=== PATIENT | male | born 1945 | race Caucasian/White ===

== ENCOUNTER 2018-01-08 07:49 | Outpatient (CLI) | payer MEDICARE, OTHER ==
--- NOTE | 2018-01-08 09:16 | RAD ---
PA AND LATERAL CHEST XRAY: DATE: 01/08/18. HISTORY: Cough. COMPARISON: None available. FINDINGS: Cardiac silhouette and pulmonary vasculature are within normal limits. There is mild eventration of the anterior right hemidiaphragm. Lungs are clear. Mild degenerative changes are seen in the spine with calcification of anterior longitudinal ligament. IMPRESSION: No acute cardiopulmonary process. POS: [facility]
== END 2018-01-08 07:50 | disposition home or self-care (01) ==
LOC: RAD-FRANK 07:49
PROVIDERS: ATTEND Nurse Practitioner Family
DX: R05 Cough (principal)
CPT/HCPCS: 71046

== ENCOUNTER 2019-05-28 10:02 | Outpatient (CLI) | payer MEDICARE, OTHER ==
--- NOTE | 2019-05-28 11:45 | RAD ---
LEFT KNEE FOUR VIEWS: HISTORY: Left knee pain. FINDINGS: Degenerative changes are present. No fracture, dislocation or bony destruction is identified. POS: OFF
--- NOTE | 2019-05-28 11:46 | RAD ---
RIGHT KNEE FOUR VIEWS: HISTORY: Right knee pain. FINDINGS: Degenerative changes are present. No fracture, dislocation or bony destruction is identified. POS: OFF
== END 2019-05-28 10:03 | disposition home or self-care (01) ==
LOC: RAD-FRANK 10:02
PROVIDERS: ATTEND Nurse Practitioner Family
DX: M25.561 Pain in right knee (principal); M25.562 Pain in left knee; M17.0 Bilateral primary osteoarthritis of knee

== ENCOUNTER 2021-07-31 11:24 | Emergency (ER) | payer MEDICARE, OTHER ==
[2021-07-31] MEDS ORDERED: Boostrix 0.5 ML (Tdap) VIAL ONE (13:12)
[2021-07-31] MEDS ORDERED: Lidocaine 1% w/Epinephrine 1:100K 20 ML VIAL ONE (13:13)
== END 2021-07-31 14:16 | disposition home or self-care (01) ==
LOC: ERS 11:24
DX: S61.012A Laceration without foreign body of left thumb without damage to nail, initial encounter (principal); E78.00 Pure hypercholesterolemia, unspecified; I10 Essential (primary) hypertension; Z79.899 Other long term (current) drug therapy; W26.8XXA Contact with other sharp object(s), not elsewhere classified, initial encounter
CPT/HCPCS: 12002; 90471; 90715

== ENCOUNTER 2022-03-03 09:53 | Outpatient (CLI) | payer MEDICARE, OTHER ==
[2022-03-03 11:32] LABS: Hemoglobin 16.1 g/dL (13.5-17.5); Mean Corpuscular HGB CONC 33.1 g/dL (32.0-36.0); Mean Corpuscular Volume 90.9 fl (81.2-95.1); Mean Platelet Volume 10.4 fl (7.4-10.4); Platelet Count 216 10x3/uL (150-450); RBC Distribution Width 13.4 % (11.5-14.5); Red Blood Cell (RBC) Count 5.36 10x6/uL (4.32-5.72); White Blood Cell (WBC) Count 5.8 10x3/uL (3.5-10.5)
[2022-03-03 11:43] LABS: Prothrombin Time 10.5 sec (9.5-12.1)
[2022-03-03 11:45] LABS: Anion Gap 15 mmol/L (10-20); BUN (Urea Nitrogen) 20 mg/dL (8.4-25.7); Calc. Creatinine Clearance 0 mL/min (70-130); Calcium 9.4 mg/dL (7.8-10.44); Carbon Dioxide 30 mmol/L (23-31); Chloride 102 mmol/L (98-107); Estimated GFR 76; Glucose 93 mg/dL (83-110); Potassium 4.2 mmol/L (3.5-5.1); Sodium 143 mmol/L (136-145)
== END 2022-03-03 09:54 | disposition home or self-care (01) ==
LOC: LABBT 09:53
PROVIDERS: ATTEND Orthopaedic Surgery
DX: Z01.812 Encounter for preprocedural laboratory examination (principal); M17.0 Bilateral primary osteoarthritis of knee; Z20.822 Contact with and (suspected) exposure to COVID-19
CPT/HCPCS: 80048; 85027; 85610; 87081; 87811

== ENCOUNTER 2022-03-03 10:15 | Inpatient (IN) | payer MEDICARE, OTHER ==
[2022-03-04 14:22] VITALS: BMI 28.5
[2022-03-08] MEDS ORDERED: Vancomycin (BATCH) 1.5 GRAM/300 ML BAG ONE (07:58)
[2022-03-08] MEDS ORDERED: Tranexamic Acid 1,000 MG/10 ML VIAL ONE (07:58)
[2022-03-08] MEDS ORDERED: Sodium Chloride 0.9% 100 ML ONE ×2 (07:58→09:16)
[2022-03-08] MEDS ORDERED: Midazolam HCl 2 mg/2 ml Vial ONE (08:03)
[2022-03-08] MEDS ORDERED: Fentanyl 100 MCG/2 ML VIAL ONE ×3 (08:03→12:40)
[2022-03-08] MEDS ORDERED: Bupivacaine HCl 0.5%/Epinephrine 1:200,000/PF 30 ml Vial ONE (08:52)
[2022-03-08] MEDS ORDERED: Bupivacaine PF 0.5% 30 ML VIAL ONE (09:16)
[2022-03-08] MEDS ORDERED: CEFAZOLIN 2 GM VIAL ONE (09:16)
[2022-03-08] MEDS ORDERED: Fentanyl 100 MCG/2 ML VIAL IV PRN (09:53)
[2022-03-08] MEDS ORDERED: fentaNYL Citrate/PF 100 MCG/2 ML SYRINGE ONE (09:55)
[2022-03-08] MEDS ORDERED: Ondansetron PF 4 MG/2 ML Vial IVP PRN ×2 (10:00→12:24)
[2022-03-08] MEDS ORDERED: Promethazine HCl 25 MG/ML VIAL IM PRN ×3 (10:00→12:24)
[2022-03-08] MEDS ORDERED: Ropivacaine 0.2% 550 ML 550 ML NERVE BLCK SCH (10:00)
[2022-03-08] MEDS ORDERED: HYDROcodone/Acetaminophen 10/325 mg Tablet PO PRN ×2 (10:00)
[2022-03-08] MEDS ORDERED: Zolpidem Tartrate 5 MG TAB PO PRN ×2 (10:00→12:24)
[2022-03-08] MEDS ORDERED: traMADol HCl 50 MG TAB PO PRN ×2 (10:00)
[2022-03-08] MEDS ORDERED: Ondansetron PF 4 MG/2 ML Vial ONE (10:03)
[2022-03-08] MEDS ORDERED: Dexamethasone 20 MG/5 ML VIAL ONE (10:03)
[2022-03-08] MEDS ORDERED: PROPOFOL 200 MG/20 ML VIAL ONE (10:03)
[2022-03-08] MEDS ORDERED: Lidocaine 1% PF 5 ML VIAL ONE (10:03)
[2022-03-08] MEDS ORDERED: ePHEDrine 50 MG/ML VIAL ONE (10:03)
[2022-03-08] MEDS ORDERED: HYDROmorphone 2 MG/ML VIAL SLOW IVP PRN (11:31)
[2022-03-08] MEDS ORDERED: Ketorolac Tromethamine 30 MG/ML VIAL IVP PRN (11:31)
[2022-03-08] MEDS ORDERED: Ondansetron HCl/PF 4 MG/2 ML Vial IVP PRN (11:31)
[2022-03-08] MEDS ORDERED: Promethazine HCl 25 MG/ML VIAL IVPB PRN (11:31)
[2022-03-08] MEDS ORDERED: Ketorolac Tromethamine 30 MG/ML VIAL ONE (12:12)
[2022-03-08] MEDS: Ketorolac Tromethamine 30 MG/ML VIAL IVP SCH ×2 (12:12→17:42)
[2022-03-08] MEDS ORDERED: diphenhydrAMINE 25 MG CAP PO PRN (12:24)
[2022-03-08] MEDS ORDERED: Acetaminophen 325 MG TAB PO PRN (12:24)
[2022-03-08] MEDS: Sodium Chloride 0.9% 1,000 ML IV SCH ×2 (17:44→22:58)
[2022-03-08] MEDS ORDERED: Vancomycin HCl 1.5 GM in Sodium Chloride 0.9% 250 ML 300 ML IVPB SCH (20:00)
[2022-03-08] MEDS ORDERED: ceFAZolin 2 GM/Dextrose 50 ML 2 GM in Premix Bag 1 BAG IVPB SCH (20:00)
[2022-03-08] MEDS ORDERED: Atorvastatin Calcium 40 MG TAB PO SCH (21:00)
[2022-03-08] MEDS: CEFAZOLIN 2 GM VIAL IVPB SCH (21:21)
[2022-03-08] MEDS: Aspirin 81 mg Enteric Coated Tablet PO SCH (21:24)
[2022-03-08] MEDS: Senokot S 8.6-50 MG TAB PO SCH (21:24)
[2022-03-08] MEDS: Metoprolol Tartrate 25 MG TAB PO SCH (21:24)
[2022-03-08] MEDS: Ferrous Gluconate 324 MG TAB PO SCH (21:24)
[2022-03-09] MEDS: Ketorolac Tromethamine 30 MG/ML VIAL IVP SCH ×2 (05:35→06:03)
[2022-03-09] MEDS ORDERED: Levothyroxine Sodium 100 MCG TAB PO SCH (06:00)
[2022-03-09] MEDS: CEFAZOLIN 2 GM VIAL IVPB SCH (06:03)
[2022-03-09 06:51] LABS: Hemoglobin 13.6 g/dL (14.0-18.0); Mean Corpuscular HGB CONC 32.7 g/dL (32.0-36.0); Mean Corpuscular Volume 94.9 fL (78.0-98.0); Mean Platelet Volume 7.9 fL (7.4-10.4); Platelet Count 199 thou/uL (130-400); RBC Distribution Width 12.5 % (11.5-14.5); White Blood Cell (WBC) Count 12.3 thou/uL (4.8-10.8)
[2022-03-09] MEDS ORDERED: Amlodipine 10 MG TAB PO SCH (09:00)
[2022-03-09] MEDS ORDERED: Lisinopril/Hydrochlorothiazide 20 mg/12.5 mg Tablet PO SCH (09:00)
[2022-03-09] MEDS ORDERED: Multivitamin W/ Minerals 1 TAB PO SCH (09:00)
[2022-03-09] MEDS ORDERED: Clopidogrel Bisulfate 75 MG TAB PO SCH (09:00)
[2022-03-09] MEDS: Aspirin 81 mg Enteric Coated Tablet PO SCH (09:35)
[2022-03-09] MEDS: Senokot S 8.6-50 MG TAB PO SCH (09:35)
[2022-03-09] MEDS: Ferrous Gluconate 324 MG TAB PO SCH (09:36)
[2022-03-09] MEDS: Metoprolol Tartrate 25 MG TAB PO SCH (09:36)
[2022-03-09] MEDS: Sodium Chloride 0.9% 1,000 ML IV SCH (11:56)
[2022-03-09 12:19] VITALS: BP 121/67; TEMP 97.8
== END 2022-03-09 13:30 | disposition home or self-care (01) | DRG 470 ==
LOC: SURG A 03-08 06:22
PROVIDERS: ADMIT Orthopaedic Surgery; ATTEND Orthopaedic Surgery
PROC: 0SRD0J9 Replacement of Left Knee Joint with Synthetic Substitute, Cemented, Open Approach (ICD-10-PCS; principal; 2022-03-08)
PROC: 3E0T3BZ Introduction of Anesthetic Agent into Peripheral Nerves and Plexi, Percutaneous Approach (ICD-10-PCS; 2022-03-08)
DX: M17.12 Unilateral primary osteoarthritis, left knee (principal); Z20.822 Contact with and (suspected) exposure to COVID-19; Z90.49 Acquired absence of other specified parts of digestive tract; Z90.89 Acquired absence of other organs
CPT/HCPCS: 36415; 85027; A4306; C1713; C1776; J0690; J1100; J1885; J2250; J2405; J2704; J2795; J3010; J3370; J3490; J7050; S0020

== ENCOUNTER 2022-06-23 07:59 | Outpatient (CLI) | payer MEDICARE, OTHER ==
[2022-06-23 09:31] LABS: #Basophils 0.1 10x3/uL (0.0-0.2); #Eosinphils 0.4 10x3/uL (0.0-0.5); #Monocytes 0.5 10x3/uL (0.0-1.1); #Neutrophils 3.9 10x3/uL (1.5-8.4); %Basophils 1.1 % (0.0-2.0); %Eosinophils 6.2 % (0.0-6.0); %Lymphocytes 25.3 % (18.0-47.0); %Monocytes 7.7 % (0.0-10.0); %Neutrophils 59.5 % (40.0-75.0); Hemoglobin 15.7 g/dL (13.5-17.5); Mean Corpuscular Hemoglobin 29.5 pg (27.0-33.0); Mean Corpuscular Volume 86.8 fl (81.2-95.1); Mean Platelet Volume 9.9 fl (7.4-10.4); Platelet Count 235 10x3/uL (150-450); Prothrombin Time 10.7 sec (9.5-12.1); RBC Distribution Width 13.9 % (11.5-14.5); Red Blood Cell (RBC) Count 5.32 10x6/uL (4.32-5.72); White Blood Cell (WBC) Count 6.6 10x3/uL (3.5-10.5)
[2022-06-23 09:43] LABS: Anion Gap 14 mmol/L (10-20); BUN (Urea Nitrogen) 18 mg/dL (8.4-25.7); Calc. Creatinine Clearance 0 mL/min (70-130); Calcium 9.4 mg/dL (7.8-10.44); Carbon Dioxide 30 mmol/L (23-31); Chloride 102 mmol/L (98-107); Estimated GFR 76; Glucose 106 mg/dL (83-110); Potassium 3.8 mmol/L (3.5-5.1); Sodium 142 mmol/L (136-145)
== END 2022-06-23 08:00 | disposition home or self-care (01) ==
LOC: LABBT 07:59
PROVIDERS: ATTEND Orthopaedic Surgery
DX: Z01.818 Encounter for other preprocedural examination (principal); M17.11 Unilateral primary osteoarthritis, right knee
CPT/HCPCS: 80048; 85025; 85610; 87081; 93005; 93010